=== PATIENT | female | born 1970 | race Caucasian/White ===

== ENCOUNTER 2017-06-24 06:01 | Emergency (ER) | payer BC ==
[~2017-06-24 06:01] MED LIST: MECL-62 PO; OMEP20TA PO
[2017-06-24 06:06] VITALS: BP_SYST 110; PULSE 87; RESP 16; TEMP 98.2; O2SAT 100
[2017-06-24] MEDS ORDERED: SODIUM CHLOR 0.9% 1000 ML INJ 1,000 ML IV ONE ×2 (06:28→07:45)
[2017-06-24] MEDS ORDERED: MECL-62 PO ×2 (06:28→08:32)
[2017-06-24] MEDS ORDERED: SODIUM CHLORIDE 0.9% FLUSH 10 ML FLUSH IVF PRN (06:30)
[2017-06-24] MEDS ORDERED: DIAZEPAM 5 MG TAB PO ONE (06:30)
[2017-06-24] MEDS ORDERED: ONDANSETRON HCL 4 MG/2 ML VIAL IVP ONE (06:30)
[2017-06-24] MEDS ORDERED: MECLIZINE HCL 25 MG TAB PO ONE (06:30)
--- NOTE | 2017-06-24 06:33 | PD ---
HPI Chief Complaint: Syncope/Near-Syncope Time Seen by Provider: 06:15 Travel History International Travel<30 days: No Contact w/Intl Traveler<30days: No Traveled to known affect area: No History of Present Illness HPI The patient is a 47-year-old female who presents emergency department for vertigo. The patient states she awakened this morning with vertiginous symptoms. The patient states every time she moves her head it feels like it is spinning within the head, associated with nausea and vomiting. The patient denies any dysarthria, focal deficits, weakness, numbness, or tingling. She denies any history of previous CVA, TIA, hypertension, hyperlipidemia, tobacco use, diabetes, CAD, or PVD. She does have a history of vertigo and had meclizine at home, however, the meclizine was . The patient states every time she moves her head to left or right, or even moves her eyes the left or right, her symptoms will progress, if she stays completely still, they will lessen to a certain degree, however, will not resolve completely. PFSH Past Medical History Medical History: Denies Significant Hx Heart Rhythm Problems: No Cardiac Catheterization: No Cardiovascular Problems: No High Cholesterol: No Congestive Heart Failure: No Diabetes: No ?: Not LMP: 06/18/17 : 4 Para: 4 Tubal Ligation: Yes Past Surgical History Surgical History: No Previous Surgery Coronary Artery Bypass Graft: No Social History Alcohol Use: No Tobacco Use: No Substance Use: No Allergies-Medications (Allergen,Severity, Reaction): Coded Allergies: Amoxicillin (Verified Allergy, Intermediate, Nausea/Vomiting, 06/24/17) Reported Meds & Prescriptions Reported Meds & Active Scripts Active Reported Meclizine (Meclizine HCl) 25 Mg Tab 25 Mg PO TID PRN Review of Systems Except as stated in HPI: all other systems reviewed are Neg General / Constitutional: No: Fever Eyes: No: Blurred Vision HENT: Positive: Vertigo Cardiovascular: No: Chest Pain or Discomfort, Palpitations Gastrointestinal: Positive: Nausea, Vomiting Neurologic: Positive: Dizziness, No: Weakness, Focal Abnormalities, Headache, Slurred Speech, Paresthesia, Sensory Disturbance Physical Exam Narrative GENERAL: Awake, alert, pleasant 47-year-old female who appears her stated age and is in no acute respiratory distress. SKIN: Focused skin assessment warm/dry. HEAD: Atraumatic. Normocephalic. EYES: Pupils equal and round. Pupils are 3 mm bilateral and reactive. EOMs are intact but exacerbate her symptoms. ENT: No nasal bleeding or discharge. Mucous membranes pink and moist. NECK: Trachea midline. No JVD. CARDIOVASCULAR: Regular rate and rhythm. No murmur appreciated. RESPIRATORY: No accessory muscle use. Clear to auscultation. Breath sounds equal bilaterally. GASTROINTESTINAL: Abdomen soft, non-tender, nondistended. MUSCULOSKELETAL: No obvious deformities. No clubbing. No cyanosis. No edema. NEUROLOGICAL: Awake and alert. No obvious cranial nerve deficits. Motor grossly within normal limits. Normal speech. Nonfocal. PSYCHIATRIC: Appropriate mood and affect; insight and judgment normal. Data Data Last Documented VS Vital Signs Date Time Temp Pulse Resp B/P Pulse Ox O2 Delivery O2 Flow Rate FiO2 06/24/17 06:19 77 15 100 Room Air 06/24/17 06:06 98.2 110/ Orders Electrocardiogram (06/24/17 06:28) Basic Metabolic Panel (Bmp) (06/24/17 06:28) Complete Blood Count With Diff (06/24/17 06:28) Magnesium (Mg) (06/24/17 06:28) Ecg Monitoring (06/24/17 06:28) Iv Access Insert/Monitor (06/24/17 06:28) Oximetry (06/24/17 06:28) Meclizine (Antivert) (06/24/17 06:30) Ondansetron Inj (Zofran Inj) (06/24/17 06:30) Sodium Chloride 0.9% Flush (Ns Flush) (06/24/17 06:30) Sodium Chlor 0.9% 1000 Ml Inj (Ns 1000 M (06/24/17 06:28) Diazepam (Valium) (06/24/17 06:30) MDM Medical Decision Making Medical Screen Exam Complete: Yes Emergency Medical Condition: Yes Medical Record Reviewed: Yes Interpretation(s) EKG reveals normal sinus rhythm with a rate of 75. No ischemic changes or ectopy noted. Differential Diagnosis Differential diagnosis includes benign proximal positional vertigo, labyrinthitis, Mnire's disease, hyponatremia, arrhythmia, cerebellar infarct, intracranial hemorrhage. Narrative Course IV was established, labs are drawn and sent, and the patient was placed on cardiac telemetry monitoring and continuous pulse oximetry monitoring. EKG was ordered and interpreted. Electrolytes were sent to lab. The patient was administered 1 L of IV fluids with Zofran, Valium, and meclizine. The patient was monitored in the emergency department. The patient was signed out to the oncoming physician at 7 AM with laboratory evaluation and reevaluation of her symptoms pending. Diagnosis Primary Impression: Vertigo Condition: Stable Slava Boswell MD Jun 24, 2017 06:33
[2017-06-24 07:00] VITALS: BP 101/64; PULSE 86; RESP 16; TEMP 97.8; O2SAT 100
[2017-06-24 07:04] LABS: AUTOMATED NEUTROPHIL # 4.6 TH/MM3 (1.8-7.7); BASOPHIL % 0.7 % (0.0-2.0); EOSINOPHIL # 0.2 TH/MM3 (0-0.4); EOSINOPHIL % 2.4 % (0.0-4.0); HEMATOCRIT 34.7 % (35.0-46.0); HEMO FLAGS DIFF FINAL; LYMPH % 21.8 % (9.0-44.0); LYMPHOCYTE # 1.5 TH/MM3 (1.0-4.8); MEAN CELL VOLUME 85.3 FL (80.0-100.0); MEAN CORPUSCULAR HEMOGLOBIN 29.2 PG (27.0-34.0); MEAN CORPUSCULAR HGB CONC 34.3 % (32.0-36.0); MONO % 6.2 % (0.0-8.0); NEUT % 68.9 % (16.0-70.0); PLATELET COUNT 277 TH/MM3 (150-450); RED BLOOD COUNT 4.07 MIL/MM3 (4.00-5.30); RED CELL DISTRIBUTION WIDTH 14.6 % (11.6-17.2); WHITE BLOOD COUNT 6.7 TH/MM3 (4.0-11.0)
[2017-06-24 07:14] LABS: BICARBONATE 26.4 MEQ/L (21.0-32.0); MAGNESIUM 1.9 MG/DL (1.5-2.5); POTASSIUM 3.5 MEQ/L (3.5-5.1)
--- NOTE | 2017-06-24 07:16 | PD ---
Physical Exam Date Seen by Provider: Jun 24, 2017 Time Seen by Provider: 07:00 Narrative The patient was signed out to me by Dr. Slava Rai at change of shift. Please see his H&P for initial visit and details regarding this visit. The patient presents after having a vertigo-like symptomatology after waking up. The patient had been seen previously for similar symptoms in the past. Dr. Boswell has medicated the patient with Valium, antiemetic, and meclizine. We are waiting electrolytes. Data Data Last Documented VS Vital Signs Date Time Temp Pulse Resp B/P Pulse Ox O2 Delivery O2 Flow Rate FiO2 06/24/17 07:00 16 100 Room Air 06/24/17 07:00 86 06/24/17 07:00 97.8 101/64 Orders Electrocardiogram (06/24/17 06:28) Basic Metabolic Panel (Bmp) (06/24/17 06:28) Complete Blood Count With Diff (06/24/17 06:28) Magnesium (Mg) (06/24/17 06:28) Ecg Monitoring (06/24/17 06:28) Iv Access Insert/Monitor (06/24/17 06:28) Oximetry (06/24/17 06:28) Meclizine (Antivert) (06/24/17 06:30) Ondansetron Inj (Zofran Inj) (06/24/17 06:30) Sodium Chloride 0.9% Flush (Ns Flush) (06/24/17 06:30) Sodium Chlor 0.9% 1000 Ml Inj (Ns 1000 M (06/24/17 06:28) Diazepam (Valium) (06/24/17 06:30) Sodium Chlor 0.9% 1000 Ml Inj (Ns 1000 M (06/24/17 07:45) Labs Laboratory Tests Test 06/24/17 06:50 White Blood Count 6.7 TH/MM3 Red Blood Count 4.07 MIL/MM3 Hemoglobin 11.9 GM/DL Hematocrit 34.7 % Mean Corpuscular Volume 85.3 FL Mean Corpuscular Hemoglobin 29.2 PG Mean Corpuscular Hemoglobin 34.3 % Concent Red Cell Distribution Width 14.6 % Platelet Count 277 TH/MM3 Mean Platelet Volume 7.7 FL Neutrophils (%) (Auto) 68.9 % Lymphocytes (%) (Auto) 21.8 % Monocytes (%) (Auto) 6.2 % Eosinophils (%) (Auto) 2.4 % Basophils (%) (Auto) 0.7 % Neutrophils # (Auto) 4.6 TH/MM3 Lymphocytes # (Auto) 1.5 TH/MM3 Monocytes # (Auto) 0.4 TH/MM3 Eosinophils # (Auto) 0.2 TH/MM3 Basophils # (Auto) 0.0 TH/MM3 CBC Comment DIFF FINAL Differential Comment Sodium Level 140 MEQ/L Potassium Level 3.5 MEQ/L Chloride Level 105 MEQ/L Carbon Dioxide Level 26.4 MEQ/L Anion Gap 9 MEQ/L Blood Urea Nitrogen 14 MG/DL Creatinine 0.76 MG/DL Estimat Glomerular Filtration 81 ML/MIN Rate Random Glucose 93 MG/DL Calcium Level 8.7 MG/DL Magnesium Level 1.9 MG/DL MDM Medical Record Reviewed: Yes Supervised Visit with NASRA: No Narrative Course 47-year-old female who has a history of vertigo, presents with vertigo like symptoms. The patient was medicated by Dr. Boswell prior to me taking over. The patient has received 2 L of IVD fluid per she states she feels back to normal. She requested that I refill her meclizine prescription. I will refill her prescription. She is encouraged to follow up with neurology if she has recurrent symptoms. She is also encouraged to return if she does any worsening symptoms. Diagnosis Primary Impression: Vertigo Additional Instruction: If symptoms continue, follow up with neurology. Return as needed. Med/Other Pt SpecificInfo: Prescription(s) given Scripts Meclizine 25 Mg Tab25 Mg PO TID PRN (VERTIGO) #30 TAB Ref 0 Prov:Pro Rios MD 06/24/17 Disposition: 01 DISCHARGE HOME Condition: Stable Pro Rios MD Jun 24, 2017 07:15
[2017-06-24 08:45] VITALS: BP 108/67; TEMP 97.8
--- NOTE | 2017-06-24 12:42 | EKG ---
Date Performed: 06/24/2017 Time Performed: 06:35:37 PTAGE: 47 years EKG: Sinus rhythm NORMAL ECG PREVIOUS TRACING : 07/13/2016 04.07 DOCTOR: Clifford Lugo Interpretating Date/Time 06/24/2017 12:39:44
== END 2017-06-24 08:50 | disposition home or self-care (01) ==
LOC: NEPE 06:01
DX: R42 Dizziness and giddiness (principal); R11.2 Nausea with vomiting, unspecified; Z79.899 Other long term (current) drug therapy; Z88.0 Allergy status to penicillin
CPT/HCPCS: 80048; 83735; 85025; 93005; 96361; 96374; 99284; J2405; J7030